=== PATIENT | female | born 1955 | race Caucasian/White ===

== ENCOUNTER 2016-05-01 18:58 | Emergency (ER) | payer OTHER ==
[~2016-05-01] VITALS: Ht 152.4 cm; Wt 74.5 kg
[~2016-05-01 18:58] MED LIST: LURA40TA PO
[2016-05-01 19:08] VITALS: Ht 152.4 cm; Wt 74.5 kg
--- NOTE | 2016-05-01 22:53 | ERA ---
ER Documentation Chief Complaint Date/Time DATE: 05/01/16 TIME: 22:53 Chief Complaint vomiting blood, dizziness, s/p fall today ankle pain HPI The patient is a 61-year-old female, presenting to the ER because of vomiting blood tinged mucous yesterday around 2 PM, again today at 6 AM, 12 PM and 5 PM. She stated that she is afraid of blood, therefore did not take a look at how much blood she vomited. She had similar symptoms previously. She has history of gastritis, esophageal ulcer and erosive esophagitis per endoscopy in August 2015. She complains of dizzy and fell yesterday and landed on her bilateral hand. She complains of left ankle pain and bilateral wrist pain. She denies fever, chills, neck pain, chest pain, dyspnea, complains of chronic abdominal pain. She she denies nausea, vomiting, diarrhea, constipation. She does not smoke, drink Past medical history: Depression, history of squamous cell carcinoma of the anus , gastritis, esophageal ulcer, erosive esophagitis, bipolar Past surgical history: Rectal surgery related to anal cancer ROS All systems reviewed and are negative except as per history of present illness. Medications Home Meds Active Scripts Pantoprazole* (Protonix*) 40 Mg Tablet.dr, 40 MG PO DAILY, #20 TAB Prov:ALEX CASTILLO MD 05/02/16 Reported Medications Lurasidone Hcl (LATUDA) 40 Mg Tablet, 40 MG PO DAILY, #30 TAB 08/31/15 Allergies Allergies: Coded Allergies: No Known Allergy (Verified , 09/06/15) PMhx/Soc History of Surgery: Yes (Polyps) Anesthesia Reaction: No Hx Neurological Disorder: Yes (depression) Hx Respiratory Disorders: No Hx Cardiac Disorders: No Hx Psychiatric Problems: Yes (depression) Hx Miscellaneous Medical Probl: No Hx Alcohol Use: No Hx Substance Use: No Hx Tobacco Use: No Physical Exam Vitals Vital Signs Date Time Temp Pulse Resp B/P Pulse Ox O2 Delivery O2 Flow Rate FiO2 05/02/16 03:02 98.6 82 17 125/76 98 Room Air 05/01/16 19:08 98.5 95 20 121/77 98 Physical Exam Const: No acute distress. Head: Atraumatic. Eyes: Normal Conjunctiva. ENT: Normal External Ears, Nose and Mouth. Neck: Full range of motion. No meningismus. Resp: Clear to auscultation bilaterally. Cardio: Regular rate and rhythm, no murmurs. Abd: Soft, non distended, normal bowel sounds, vague and diffuse abdominal discomfort, no rigidity, rebound, CVA tenderness Skin: No petechiae or rashes. Back: No midline or flank tenderness. Ext: Bilateral wrist and left ankle with vague tenderness, no erythema , no edema, no ecchymosis Neur: Awake and alert. No focal deficit Psych: Normal Mood and Affect. Result Diagram: 05/01/16 2340 05/01/16 2340 Results 24 hrs Laboratory Tests Test 05/01/16 23:40 Activated Partial Thromboplast Time 26.4Sec Alanine Aminotransferase (ALT/SGPT) 29IU/L Albumin 4.0g/dl Albumin/Globulin Ratio 1.05 Alkaline Phosphatase 158IU/L Anion Gap 16 Aspartate Amino Transf (AST/SGOT) 21IU/L Basophils # 0.010^3/ul Basophils % 0.3% Blood Morphology Comment Blood Urea Nitrogen 7mg/dl Calcium Level 9.3mg/dl Carbon Dioxide Level 26mmol/L Chloride Level 102mmol/L Creatinine 0.68mg/dl Direct Bilirubin 0.00mg/dl Eosinophils # 0.210^3/ul Eosinophils % 2.9% Globulin 3.80g/dl Glucose Level 108mg/dl Hematocrit 34.6% Hemoglobin 11.6g/dl INR International Normalized Ratio 0.96 Indirect Bilirubin 0.1mg/dl Lymphocytes # 2.710^3/ul Lymphocytes % 39.6% Mean Corpuscular Hemoglobin 29.2pg Mean Corpuscular Hemoglobin Concent 33.6g/dl Mean Corpuscular Volume 86.9fl Mean Platelet Volume 8.1fl Monocytes # 0.510^3/ul Monocytes % 7.4% Neutrophils # 3.310^3/ul Neutrophils % 49.8% Nucleated Red Blood Cells # 0.010^3/ul Nucleated Red Blood Cells % 0.0/100WBC Platelet Count 79040^3/UL Potassium Level 3.9mmol/L Prothrombin Time 12.8Sec Prothrombin Time Ratio 1.0 Red Blood Count 3.9810^6/ul Red Cell Distribution Width 15.6% Sodium Level 140mmol/L Total Bilirubin 0.1mg/dl Total Protein 7.8g/dl Troponin I < 0.010ng/ml White Blood Count 6.710^3/ul Procedures/MDM EKG: Read by emergency physician Rate/Rhythm: Normal Sinus Rhythm 82 beats per min QRS, ST, T-waves: No ST elevation, no T wave inversion Impression: Normal EKG [place] [address] Radiology Main Line: [phone] DIAGNOSTIC IMAGING REPORT Patient: RYAN JACKSON : 1955 Age: 61 Sex: F MR #: [id number] DOS: 05/01/162333 Ordering MD: ALEX CASTILLO MD Location: E/R Room/Bed: PROCEDURE: LEFT FOOT - 3 VIEWS CLINICAL INDICATION: 61-year-old female with left foot pain. TECHNIQUE: AP, lateral and oblique views of the left foot was obtained. The images were reviewed on a PACS workstation. COMPARISON: Left ankle obtained concurrently. FINDINGS: The bones of the left foot appear intact, with no evidence of fracture, dislocation, or subluxation. The joint spaces are preserved. Bone mineralization is within normal limits. IMPRESSION: Unremarkable left foot radiographs. .Carter Olivas MD, MD Date Time Electronically viewed and signed by .Carter Olivas MD, MD on 05/02/2016 01:25 .M/ CC: ALEX CASTILLO MD [place] [address] Radiology Main Line: [phone] DIAGNOSTIC IMAGING REPORT Patient: RYAN JACKSON : 1955 Age: 61 Sex: F MR #: [id number] DOS: 05/01/162333 Ordering MD: ALEX CASTILLO MD Location: E/R Room/Bed: PROCEDURE: LEFT ANKLE - 3 VIEWS CLINICAL INDICATION: 61-year-old female with left ankle pain. TECHNIQUE: AP, oblique and lateral views of the left ankle were performed. The images reviewed on a PACS workstation. COMPARISON: Left foot obtained concurrently. FINDINGS: The bones of the ankle appear intact, with no evidence of fracture, dislocation , or subluxation. The joint spaces are preserved. The mortise appears intact. Bone mineralization is within normal limits. IMPRESSION: Unremarkable left ankle radiographs. .Carter Olivas MD, MD Date Time Electronically viewed and signed by .Carter Olivas MD, MD on 05/02/2016 01:26 .M/ CC: ALEX CASTILLO MD [place] [address] Radiology Main Line: [phone] DIAGNOSTIC IMAGING REPORT Patient: RYAN JACKSON : 1955 Age: 61 Sex: F MR #: [id number] DOS: 05/01/16 2339 Ordering MD: ALEX CASTILLO MD Location: E/R Room/Bed: PROCEDURE: RIGHT WRIST - 3 VIEWS CLINICAL INDICATION: 61-year-old female with right wrist pain. TECHNIQUE: AP, lateral and oblique views of the right wrist were performed. The images reviewed on a PACS workstation. COMPARISON: None. FINDINGS: No evidence of fracture, dislocation, or subluxation is seen. The bones appear well mineralized. The joint spaces are well preserved. IMPRESSION: Unremarkable exam of the right wrist radiograph. .Carter Olivas MD, MD Date Time Electronically viewed and signed by .Carter Olivas MD, MD on 05/02/2016 01:28 .M/ CC: ALEX CASTILLO MD [place] [address] Radiology Main Line: [phone] DIAGNOSTIC IMAGING REPORT Patient: RYAN JACKSON : 1955 Age: 61 Sex: F MR #: [id number] DOS: 05/01/16 2339 Ordering MD: ALEX CASTILLO MD Location: E/R Room/Bed: PROCEDURE: LEFT WRIST - 3 VIEWS CLINICAL INDICATION: 61-year-old female with left wrist pain. TECHNIQUE: AP and oblique views of the left wrist were performed. The images reviewed on a PACS workstation. COMPARISON: None. FINDINGS: There is a nondisplaced fracture of the distal left radius which extends into the radiocarpal joint. There is no significant angulation. There is no evidence for dislocation. The bone marrow mineralization is within normal limits. There is an intravenous line overlying the wrist. IMPRESSION: 1. Nondisplaced intra-articular distal left radius fracture. 2. Intravenous line. .Carter Olivas MD, MD Date Time Electronically viewed and signed by .Carter Olivas MD, MD on 05/02/2016 01:27 .M/ CC: ALEX CASTILLO MD MEDICAL MAKING DECISION: The patient is a 71-year-old female, presenting to the ER because of acute hematemesis, most likely due to gastritis, erosive esophagitis and esophageal cancer, acute left radial fracture, acute left ankle sprain, acute right wrist sprain. She is not active bleeding and is stable for outpatient GI workup. The differential diagnoses considered include but are not limited to gastritis, peptic ulcer disease, esophageal varices, Cleopatra- Watson tear, carcinoma, polyp, hemorrhoid, fissure, diverticulosis, angiodysplasia. She was treated with a sugar tong and sling and discharged with x-ray copy of the left wrist. Post splint neurovascular is intact Departure Diagnosis: Primary Impression: Hematemesis Additional Impressions: Left radial fracture Left ankle pain Right wrist pain Anemia Condition: Good Comments She was treated with Protonix I discussed the findings with the patient. I advised the patient to follow-up with the primary physician in about 1-2 days for immediate referral to gastroenterology for further evaluation and the on-call orthopedist Dr Christian in 1-2 day, sooner if needed and return if any concern. ALEX CASTILLO MD May 01, 2016 22:53
[2016-05-02 00:40] LABS: CHLORIDE 102 mmol/L (97-110); SODIUM 140 mmol/L (135-144)
[2016-05-02 00:41] LABS: POTASSIUM 3.9 mmol/L (3.5-5.1)
[2016-05-02 00:43] LABS: ALBUMIN/GLOBULIN RATIO 1.05; ALKALINE PHOSPHATASE 158 IU/L (42-121); ANION GAP 16 (8-16); ASPARTATE AMINO TRANSFERASE 21 IU/L (15-46); BILIRUBIN,INDIRECT 0.1 mg/dl (0-1.1); BILIRUBIN,TOTAL 0.1 mg/dl (0.2-1.3); BLOOD UREA NITROGEN 7 mg/dl (7-20); CARBON DIOXIDE 26 mmol/L (21-31); CREATININE 0.68 mg/dl (0.44-1.00); TOTAL PROTEIN 7.8 g/dl (6.1-8.1)
[2016-05-02 00:44] LABS: ALANINE AMINOTRANSFERASE 29 IU/L (13-69); CALCIUM 9.3 mg/dl (8.4-10.2); GLUCOSE 108 mg/dl (70-220)
[2016-05-02 00:50] LABS: BASOPHILS % 0.3 % (0.0-2.0); EOSINOPHILS # 0.2 10^3/ul (0.0-0.5); EOSINOPHILS % 2.9 % (0.0-7.0); HEMATOCRIT 34.6 % (37.0-47.0); HEMOGLOBIN 11.6 g/dl (12.0-16.0); LYMPHOCYTES # 2.7 10^3/ul (0.8-2.9); LYMPHOCYTES % 39.6 % (15.0-51.0); MEAN CORPUSCULAR HEMOGLOBIN 29.2 pg (29.0-33.0); MEAN CORPUSCULAR HGB CONC 33.6 g/dl (32.0-37.0); MEAN CORPUSCULAR VOLUME 86.9 fl (82.0-101.0); MEAN PLATELET VOLUME 8.1 fl (7.4-10.4); MONOCYTE # 0.5 10^3/ul (0.3-0.9); MONOCYTES % 7.4 % (0.0-11.0); NEUTROPHIL # 3.3 10^3/ul (1.6-7.5); NEUTROPHILS % 49.8 % (39.0-77.0); PLATELET COUNT 287 10^3/UL (140-440); RED BLOOD COUNT 3.98 10^6/ul (4.20-5.40); RED CELL DISTRIBUTION WIDTH 15.6 % (11.5-14.5); UNCORRECTED WBC 6.7 10^3/ul (4.8-10.8); WHITE BLOOD COUNT 6.7 10^3/ul (4.8-10.8)
[2016-05-02 00:53] LABS: CONDITION 1; INR 0.96; LH ANALYZER COMMENTS 1; PROTIME 12.8 Sec (12.2-14.2)
[2016-05-02 00:54] LABS: PARTIAL THROMBOPLASTIN TIME 26.4 Sec (25.0-35.0)
[2016-05-02 00:56] LABS: TROPONIN-I < 0.010 ng/ml (0.00-0.12)
--- NOTE | 2016-05-02 01:25 | RADRPT ---
PROCEDURE: LEFT FOOT - 3 VIEWS CLINICAL INDICATION: 61-year-old female with left foot pain. TECHNIQUE: AP, lateral and oblique views of the left foot was obtained. The images were reviewed on a PACS workstation. COMPARISON: Left ankle obtained concurrently. FINDINGS: The bones of the left foot appear intact, with no evidence of fracture, dislocation, or subluxation. The joint spaces are preserved. Bone mineralization is within normal limits. IMPRESSION: Unremarkable left foot radiographs. .Carter Olivas MD, Date Time Electronically viewed and signed by .Carter Olivas MD, on 05/02/2016 01:25 .M/
--- NOTE | 2016-05-02 01:26 | RADRPT ---
PROCEDURE: LEFT ANKLE - 3 VIEWS CLINICAL INDICATION: 61-year-old female with left ankle pain. TECHNIQUE: AP, oblique and lateral views of the left ankle were performed. The images reviewed on a PACS workstation. COMPARISON: Left foot obtained concurrently. FINDINGS: The bones of the ankle appear intact, with no evidence of fracture, dislocation, or subluxation. The joint spaces are preserved. The mortise appears intact. Bone mineralization is within normal limits . IMPRESSION: Unremarkable left ankle radiographs. .Carter Olivas MD, MD Date Time Electronically viewed and signed by .Carter Olivas MD, MD on 05/02/2016 01:26 .M/
--- NOTE | 2016-05-02 01:28 | RADRPT ---
PROCEDURE: LEFT WRIST - 3 VIEWS CLINICAL INDICATION: 61-year-old female with left wrist pain. TECHNIQUE: AP and oblique views of the left wrist were performed. The images reviewed on a PACS [employer]. COMPARISON: None. FINDINGS: There is a nondisplaced fracture of the distal left radius which extends into the radiocarpal joint. There is no significant angulation. There is no evidence for dislocation. The bone marrow minera lization is within normal limits. There is an intravenous line overlying the wrist. IMPRESSION: 1. Nondisplaced intra-articular distal left radius fracture. 2. Intravenous line. .Carter Olivas MD, MD Date Time Electronically viewed and signed by .Carter Olivas MD, on 05/02/2016 01:27 .[place]
--- NOTE | 2016-05-02 01:28 | RADRPT ---
PROCEDURE: RIGHT WRIST - 3 VIEWS CLINICAL INDICATION: 61-year-old female with right wrist pain. TECHNIQUE: AP, lateral and oblique views of the right wrist were performed. The images reviewed on a PACS workstation. COMPARISON: None. FINDINGS: No evidence of fracture, dislocation, or subluxation is seen. The bones appear well mineralized. The joint spaces are well preserved. IMPRESSION: Unremarkable exam of the right wrist radiograph. .Carter Olivas MD, MD Date Time Electronically viewed and signed by .Carter Olivas MD, on 05/02/2016 01:28 .Joon/
[2016-05-02] MEDS ORDERED: PANT40TA3 PO (01:42)
[2016-05-02 03:02] VITALS: BP 125/76; PULSE 82; RESP 17; TEMP 98.6
== END 2016-05-02 03:04 | disposition home or self-care (01) ==
LOC: E/R 18:58
DX: K92.0 Hematemesis (principal); R40.2142 Coma scale, eyes open, spontaneous, at arrival to emergency department; R40.2252 Coma scale, best verbal response, oriented, at arrival to emergency department; R40.2362 Coma scale, best motor response, obeys commands, at arrival to emergency department; S99.912A Unspecified injury of left ankle, initial encounter; S69.91XA Unspecified injury of right wrist, hand and finger(s), initial encounter; D64.9 Anemia, unspecified; S52.572A Other intraarticular fracture of lower end of left radius, initial encounter for closed fracture; R42 Dizziness and giddiness; W18.39XA Other fall on same level, initial encounter; Y92.9 Unspecified place or not applicable; Z85.048 Personal history of other malignant neoplasm of rectum, rectosigmoid junction, and anus; Z85.01 Personal history of malignant neoplasm of esophagus
CPT/HCPCS: 29125; 73110; 73610; 73630; 80053; 84484; 85025; 85610; 85730; 86850; 86900; 86901; 93005; Z7502; Z7610